=== PATIENT | female | born 1990 | race African-American/Black ===

== ENCOUNTER 2018-05-08 19:32 | Emergency (ER) | payer OTHER ==
[~2018-05-08] VITALS: Ht 160 cm; Wt 66.3 kg
[2018-05-09] MEDS ORDERED: TETANUS, DIPHTHERIA, PERTUSSIS VAC/PF 0.5ML (>7YR OLD) IM ONE (00:15)
[2018-05-09 01:00] VITALS: BP 111/70
== END 2018-05-09 01:02 | disposition home or self-care (01) ==
LOC: ER 19:32
DX: S61.210A Laceration without foreign body of right index finger without damage to nail, initial encounter (principal); F12.10 Cannabis abuse, uncomplicated; Z23 Encounter for immunization; W26.8XXA Contact with other sharp object(s), not elsewhere classified, initial encounter; Y93.89 Activity, other specified; Y92.89 Other specified places as the place of occurrence of the external cause; Y99.8 Other external cause status
CPT/HCPCS: 12001; 90471; 90715; 99283; Z7610

== ENCOUNTER 2018-05-10 15:10 | Emergency (ER) | payer OTHER ==
[~2018-05-10] VITALS: Ht 160 cm; Wt 66.0 kg
[2018-05-10] MEDS ORDERED: BACITRACIN ZINC OINT UDPKT TOP ONE (19:15)
[2018-05-10 20:16] VITALS: BP 111/78
== END 2018-05-10 20:20 | disposition home or self-care (01) ==
LOC: ER 15:33
DX: T81.30XA Disruption of wound, unspecified, initial encounter (principal); Y84.8 Other medical procedures as the cause of abnormal reaction of the patient, or of later complication, without mention of misadventure at the time of the procedure; Y92.89 Other specified places as the place of occurrence of the external cause; F12.90 Cannabis use, unspecified, uncomplicated
CPT/HCPCS: 29130; 99283; Z7610